=== PATIENT | female | born 1985 | race Caucasian/White ===

== ENCOUNTER 2017-01-20 16:51 | Emergency (ER) | payer SELFPAY ==
[~2017-01-20] VITALS: Ht 160 cm; Wt 78.9 kg
[~2017-01-20 16:51] MED LIST: DENIES
[2017-01-20 16:52] VITALS: Ht 160 cm; Wt 78.9 kg
[2017-01-20] MEDS ORDERED: SOD CHLORIDE 0.9% 1,000 ML IV ONE (17:30)
[2017-01-20] MEDS ORDERED: ACETAMINOPHEN 325 MG TAB PO ONE (17:30)
--- NOTE | 2017-01-20 18:07 | ERD ---
ER Documentation Chief Complaint Date/Time DATE: 01/20/17 TIME: 18:02 Chief Complaint send for htn ,7 weeks , has carrero HPI This patient is a 31-year-old female who is Ab2 LC 2 currently reportedly 7 weeks presenting to the emergency department for hypertension sent by her BIOMETRICIAN provider, Dr.Michael Adan with [facility] in [place], [place], telephone number: [phone]. Additionally the patient reports a mild headache which she rates a 5 out of 10. She states this is been ongoing intermittently for the past 2 days. The patient is taken no medications. The patient denies fevers, chills, vision changes, vaginal bleeding, vaginal spotting, suprapubic or abdominal pain, or other symptoms at this time. ROS All systems reviewed and are negative except as per history of present illness. Medications Home Meds Active Scripts Acetaminophen* (Tylenol*) 325 Mg Tablet, 2 TAB PO Q6 Y for PAIN AND OR ELEVATED TEMP, #20 TAB Prov:ELIO JIMENEZ PA-C 01/20/17 Labetalol Hcl* (Labetalol Hcl*) 100 Mg Tablet, 100 MG PO BID, #30 TAB Check blood pressure twice daily. Medication to be taken only if blood pressure rises above 155/105. Prov:ELIO JIMENEZ PA-C 01/20/17 Reported Medications [None] No Conflict Check 05/05/11 [Denies] No Conflict Check 12/19/09 Allergies Allergies: Coded Allergies: No Known Drug Allergy (Verified Allergy, Mild, 12/19/09) Uncoded Allergies: nka (Allergy, Mild, 03/21/11) PMhx/Soc History of Surgery: Yes (ECTOPIC 2008, D&C 2009) Anesthesia Reaction: No Hx Neurological Disorder: No Hx Respiratory Disorders: No Hx Cardiac Disorders: No Hx Psychiatric Problems: No Hx Miscellaneous Medical Probl: No Hx Alcohol Use: No Hx Substance Use: No Hx Tobacco Use: No FmHx Noncontributory for chief complaint Physical Exam Vitals Vital Signs Date Time Temp Pulse Resp B/P Pulse Ox O2 Delivery O2 Flow Rate FiO2 01/20/17 16:52 98.1 88 18 150/77 99 Physical Exam Const: The patient is resting comfortably in no acute distress. Head: Atraumatic Eyes: Normal Conjunctiva ENT: Normal External Ears, Nose and Mouth. Neck: Full range of motion..~ No meningismus. Resp: Clear to auscultation bilaterally Cardio: Regular rate and rhythm, no murmurs Abd: Soft, non tender, non distended. Normal bowel sounds : There is no suprapubic tenderness to palpation bilaterally. There is no CVA tenderness. Skin: No petechiae or rashes Back: No midline or flank tenderness Ext: No cyanosis, or edema Neur: Awake and alert Psych: Normal Mood and Affect Result Diagram: 01/20/17181401/20/171814 Results 24 hrs Laboratory Tests Test 01/20/17 18:15 01/20/17 18:25 White Blood Count 10.610^3/ul Red Blood Count 4.7410^6/ul Hemoglobin 13.8g/dl Hematocrit 41.5% Mean Corpuscular Volume 87.6fl Mean Corpuscular Hemoglobin 29.1pg Mean Corpuscular Hemoglobin Concent 33.3g/dl Red Cell Distribution Width 13.8% Platelet Count 58110^3/UL Mean Platelet Volume 12.5fl Neutrophils % 67.7% Lymphocytes % 24.3% Monocytes % 5.6% Eosinophils % 1.3% Basophils % 0.4% Nucleated Red Blood Cells % 0.0/100WBC Neutrophils # 7.210^3/ul Lymphocytes # 2.610^3/ul Monocytes # 0.610^3/ul Eosinophils # 0.110^3/ul Basophils # 0.010^3/ul Nucleated Red Blood Cells # 0.010^3/ul Sodium Level 139mmol/L Potassium Level 3.8mmol/L Chloride Level 105mmol/L Carbon Dioxide Level 25mmol/L Anion Gap 13 Blood Urea Nitrogen 11mg/dl Creatinine 0.57mg/dl Glucose Level 88mg/dl Calcium Level 9.5mg/dl Total Bilirubin 0.2mg/dl Direct Bilirubin 0.00mg/dl Indirect Bilirubin 0.2mg/dl Aspartate Amino Transf (AST/SGOT) 17IU/L Alanine Aminotransferase (ALT/SGPT) 25IU/L Alkaline Phosphatase 59IU/L Total Protein 7.7g/dl Albumin 4.1g/dl Globulin 3.60g/dl Albumin/Globulin Ratio 1.13 Urine Color LT. YELLOW Urine Clarity CLOUDY Urine pH 6.0 Urine Specific [place] >=1.030 Urine Ketones NEGATIVE Urine Nitrite NEGATIVE Urine Bilirubin NEGATIVE Urine Urobilinogen 0.2 E.U./dL Urine Leukocyte Esterase NEGATIVE Urine Microscopic RBC NONE SEEN/HPF Urine Microscopic WBC 0-2/HPF Urine Squamous Epithelial Cells MANY Urine Bacteria FEW Urine Hemoglobin NEGATIVE Urine Glucose NEGATIVE% Urine Total Protein NEGATIVE Current Medications Medications (Trade) Dose Ordered Sig/Gibran Route PRN Reason Start Time Stop Time Status Last Admin Dose Admin Sodium Chloride (NS) 1,000 ml @ 1,000 mls/hr Q1H ONCE IV 01/20/17 17:30 01/20/17 18:29 DC 01/20/17 18:27 Acetaminophen (Tylenol Tab) 650 mg ONCE ONCE PO 01/20/17 17:30 01/20/17 17:31 DC 01/20/17 18:27 Procedures/MDM EMERGENCY DEPARTMENT COURSE / MEDICAL DECISION MAKING: This is a 31-year-old female who comes to the emergency room secondary to complaints of hypertension. The patient is reportedly 7 weeks . The patient was given IV fluids and p.o. Tylenol in the department. On re- evaluation, the patient was feeling improved. UA was negative for infection and proteinuria. Labs show no signs of leukocytosis, anemia, or other significant acute abnormalities. The primary diagnosis is hypertension affecting in the first trimester. I have low suspicion for preeclampsia, TIA, hypertensive urgency, hypertensive emergency, or other emergent conditions at this time. I discussed this patient with Dr.Michael Adan OBMAYELA, who agreed with the ED course up until this point and recommended giving the patient labetalol 100 mg twice daily only if her blood pressure goes over 155/105. This was explained in detail to the patient. She was advised to check her blood pressure at home twice daily and record her numbers. The patient was advised that if she is not able to control her blood pressure at home and she is to return the emergency department immediately. Patient was additionally given prescription for Tylenol to take as needed for headaches. Discharge: I have discussed the lab results and diagnostic findings with the patient and answered any questions or concerns. The patient was advised to followup with their PMD in 1-2 days and to return to the Emergency Department if there are any new or worsening symptoms. The patient understood and agreed with the diagnosis, treatment and plan. The patient is stable for discharge at this time. Departure Diagnosis: Primary Impression: Hypertension affecting in first trimester Condition: Stable Referrals: [facility] Additional Instructions: Follow-up with your primary care physician within 1 week. Return to the emergency department immediately should you have any new or worsening symptoms, uncontrolled fevers, or other unexplained symptoms. Take all medications as directed. ELIO JIMENEZ PA-C Jan 20, 2017 18:07
[2017-01-20 18:22] LABS: ADD SCAN DIFF NO
[2017-01-20 18:25] LABS: BASOPHILS % 0.4 % (0.0-2.0); EOSINOPHILS # 0.1 10^3/ul (0.0-0.5); EOSINOPHILS % 1.3 % (0.0-7.0); HEMATOCRIT 41.5 % (37.0-47.0); HEMOGLOBIN 13.8 g/dl (12.0-16.0); LYMPHOCYTES # 2.6 10^3/ul (0.8-2.9); LYMPHOCYTES % 24.3 % (15.0-51.0); MEAN CORPUSCULAR HEMOGLOBIN 29.1 pg (29.0-33.0); MEAN CORPUSCULAR HGB CONC 33.3 g/dl (32.0-37.0); MEAN CORPUSCULAR VOLUME 87.6 fl (82.0-101.0); MEAN PLATELET VOLUME 12.5 fl (7.4-10.4); MONOCYTE # 0.6 10^3/ul (0.3-0.9); MONOCYTES % 5.6 % (0.0-11.0); NEUTROPHIL # 7.2 10^3/ul (1.6-7.5); NEUTROPHILS % 67.7 % (39.0-77.0); PLATELET COUNT 239 10^3/UL (140-415); RED BLOOD COUNT 4.74 10^6/ul (4.20-5.40); RED CELL DISTRIBUTION WIDTH 13.8 % (11.5-14.5); WHITE BLOOD COUNT 10.6 10^3/ul (4.8-10.8)
[2017-01-20 18:40] LABS: ALBUMIN 4.1 g/dl (3.3-4.9); POTASSIUM 3.8 mmol/L (3.5-5.1)
[2017-01-20 18:42] LABS: BILIRUBIN,INDIRECT 0.2 mg/dl (0-1.1); BILIRUBIN,TOTAL 0.2 mg/dl (0.2-1.3); CREATININE 0.57 mg/dl (0.44-1.00)
[2017-01-20 18:43] LABS: ALBUMIN/GLOBULIN RATIO 1.13; TOTAL PROTEIN 7.7 g/dl (6.1-8.1)
[2017-01-20 18:44] LABS: CALCIUM 9.5 mg/dl (8.4-10.2)
[2017-01-20 19:07] LABS: ADD UMIC YES; URINE BILIRUBIN (Dip) NEGATIVE (NEGATIVE); URINE BLOOD (Dip) NEGATIVE (NEGATIVE); URINE COLOR LT. YELLOW (YELLOW); URINE GLUCOSE (Dip) NEGATIVE (NEGATIVE); URINE KETONES (Dip) NEGATIVE (NEGATIVE); URINE LEUKOCYTE ESTERASE (Dip) NEGATIVE (NEGATIVE); URINE NITRITE (Dip) NEGATIVE (NEGATIVE); URINE TOTAL PROTEIN (Dip) NEGATIVE (NEGATIVE); URINE UROBILINOGEN (Dip) 0.2 E.U./dL (0.1-1.0)
[2017-01-20 19:21] LABS: BACTERIA,URINE FEW; SQUAMOUS EPITHELIAL CELL,UR MANY; URINE RBCS NONE SEEN /HPF (0)
[2017-01-20] MEDS ORDERED: LABE100T3 PO (19:38)
[2017-01-20] MEDS ORDERED: ACET325T33 PO (19:39)
[2017-01-20 20:10] VITALS: BP 143/90; PULSE 77; RESP 18; TEMP 98.1
== END 2017-01-20 20:10 | disposition home or self-care (01) ==
LOC: FTE 16:51
DX: O16.1 Unspecified maternal hypertension, first trimester (principal); R51 Headache; Z3A.01 Less than 8 weeks gestation of pregnancy
CPT/HCPCS: 80053; 81001; 85025; 99284; J7030; 81003